=== PATIENT | male | born 1935 | race Caucasian/White ===

== ENCOUNTER 2018-01-18 10:56 | Inpatient (IN) | payer OTHER, MEDICARE ==
[~2018-01-18] VITALS: Ht 182.8 cm; Wt 81.3 kg
--- NOTE | ~2018-01-18 | CON ---
[place], [place] REPORT OF CONSULTATION NAME: MAVIS JONES UNIT #: [id number] ROOM: 424 DOCTOR: SIMONE CASTILLO MD,WENDY BIRTHDATE: [birth year] DOS: 01/19/2018 REASON FOR CONSULTATION: Assess the patient for abnormal CT scan of the chest and for hemoptysis. HISTORY OF PRESENT ILLNESS: This 82-year-old white male presented to the Emergency Room for the assessment of symptoms of intermittent hemoptysis as well as shortness of breath. The patient was sent to the hospital from the [facility] for assessment of the current symptom. The patient stated he has been having hemoptysis, which has been noted for the past 7 days. Hemoptysis has been noted intermittently with fresh bleeding, a small amount of blood clots. He was seen in the Emergency Room for assessment of that. The chest x-ray done for the patient that was noted normal. CT scan of the chest was done afterward. The patient has been advised for hospitalization for further assessment of the ongoing hemoptysis with exacerbation of COPD. He does have symptoms of wheezing. The cough has been otherwise without sputum expectoration prior to that. The wheezing was described previously and intermittently. There were no symptoms of chest pain reported by the patient. The patient denies any symptoms of acute chest pain. Pulse oxygen saturation at the [facility] was also noted 89% as well. REVIEW OF SYSTEMS: CONSTITUTIONAL: The patient has noted weight loss about 40 pounds in the past couple of months. Denies any symptoms of fever or chills. He was also reported symptoms of anorexia. EYES: Denies burning, discharge, or redness. EARS, NOSE, THROAT: Denies any hoarseness, otalgia, postnasal drainage or epistaxis. CARDIOVASCULAR: Denies anginal pain, edema or pain in the lower extremities. GASTROINTESTINAL: Dysphagia, nausea, vomiting, diarrhea, abdominal pain, hematemesis, melena, with recent abnormal weight loss as earlier stated. GENITOURINARY: No dysuria, suprapubic pain, or hematuria. SKIN: Denies any abnormal lesions or rashes. MUSCULOSKELETAL: Denies acute joint pain, redness, or tenderness. CENTRAL NERVOUS SYSTEM: No dizziness, headache, diplopia, or syncopal episodes. Remaining systems were reviewed, they were noted all negative. PAST MEDICAL HISTORY: Noted with history of: 1. COPD. 2. Chronic kidney disease. 3. Type 2 diabetes mellitus. 4. History of gout. 5. Mild senile hearing loss. 6. Past history of herpes zoster. 7. Hyperlipidemia. 8. Essential hypertension. SOCIAL HISTORY: The patient is , has 4 children, lives at home. Denies history of alcohol use or illicit drug use. There has been noted tobacco use for the patient, long-term for this patient, up to 70-pack history of tobacco [place], [place] REPORT OF CONSULTATION NAME: MAVIS JONES UNIT #: [id number] ROOM: [facility] DOCTOR: SIMONE CASTILLO MD,WENDY BIRTHDATE: [birth year] use was known previously. There was no work described in the [employer], [employer] or similar environment. PAST SURGICAL HISTORY: Noted with no major surgeries. FAMILY HISTORY: The patient's father at the age of 8484 years old with complication of broken heart. Mother at the age of 7878 years old with symptoms of congestive heart failure. HOME MEDICATIONS: Noted use of aspirin, finasteride, hydrochlorothiazide, lisinopril, Mucinex, probenecid, and what is described as ubidecarenone. DRUG ALLERGIES: Noted for no known drug allergies. PHYSICAL EXAMINATION: GENERAL: This is an 82-year-old white male who has been noted currently awake and alert, without any acute distress. His height was noted as 6 feet, weight of 179 pounds, BMI 24.3. VITAL SIGNS: For the patient were noted as normal temperature, respiratory rate of 21-22, heart rate of 58-80, blood pressure 170/58-120/52. Intake is 840, output 425 mL. Pulse oxygen saturation on room air at rest was 93% saturation on admission. HEENT: Examination shows head was atraumatic. Eyes nonicterus. Mild senile hearing loss. NECK: Supple. CARDIOVASCULAR: S1, S2 audible. LUNGS: Noted scattered expiratory wheezing bilaterally with decreased breaths in the right lower lung. ABDOMEN: Soft, nontender, mild obesity. Bowel sounds present. EXTREMITIES: Without any edema, clubbing, or cyanosis. CENTRAL NERVOUS SYSTEM: Cranial nerves 2-12 intact. No focal deficit. MUSCULOSKELETAL: Without acute deformities. SKIN: No lesions or rashes. LABORATORY DATA: CBC of the patient that was done yesterday on admission, WBC count 12.1, hemoglobin, hematocrit and platelet count were normal. Lactic acid was noted 1.0, normal. PT and PTT normal yesterday. CMP of the patient from 01/18/2018, BUN of 24, creatinine 1.52. Remaining LFTs as well as troponins normal. The troponin second and third set of the patient yesterday were noted normal. PT and PTT repeated again this morning, normal BMP, BUN 24, creatinine 1.46. CBC this morning, WBC count was noted normal, hemoglobin 12.3, platelet count was normal. IMAGING DATA: Chest x-ray of the patient shows evidence of nodular opacity noted in the right lower lung with prominence of the left hilar area, personally assessed. CT scan of the chest, which was done without contrast, personally assessed as well, shows evidence of a 6 mm nodule in the right middle lobe as well as additional nodules with opacification more than 1 cm, with associated area of infiltration in the left lower lobe with marked narrowing of the left main stem bronchus was also noted. Prominence of the right hilar area was also [place], [place] REPORT OF CONSULTATION NAME: MAVIS JONES UNIT #: [id number] ROOM: 424 DOCTOR: SIMONE CASTILLO MD,[facility] BIRTHDATE: [birth year] noted. The lymphadenopathy present in the left hilar area is difficult to exclude because of lack of use of IV contrast; however, the lymphadenopathy was suspected strongly in the left hilum. IMPRESSION: 1. The patient has been presented to the hospital with intermittent hemoptysis with acute exacerbation of chronic obstructive pulmonary disease, strong suspicion of possible malignancy would be considered in the left lower lung for this patient. 2. History of long-term tobacco user, known previously as well. 3. History of essential hypertension, type 2 diabetes mellitus, and chronic kidney disease was also noted, stage III. 4. A 6 mm nodule in the right middle lobe, which has been noted stable from previous CT scans. PLAN OF MANAGEMENT: The patient has been made n.p.o. past midnight for bronchoscopy. He was receiving intravenous steroids for exacerbation of COPD and that will be continued. Continue antibiotic for any superimposed infection or acute bronchitis as well as left lower lobe pneumonia possibility. Other supportive therapy, plan of management. DVT with GI prophylaxis. Usual care, other plan of management is in progress. Additional treatment changes will be recommended for the patient after the endobronchial tree inspection. The risks and benefits of the procedure have been discussed in detail with the patient personally and with the daughter. The patient gave the consent for the procedure and that will be done today. Continuation of bronchodilators. Thank you for allowing me to participate in the care of this patient. WENDY NICHOLS MD CM:CONSTR:REPORT OF CONSULTATION 1212 01/19/18 1828 interface
--- NOTE | ~2018-01-18 | PROC NOTE ---
[place], [place] PROCEDURE NOTE NAME: MAVIS JONES UNIT #: [id number] ROOM: 424 DOCTOR: SIMONE CASTILLO MD,WENDY BIRTHDATE: [birth year] DOS: 01/19/2018 PREOPERATIVE DIAGNOSES: The patient opted normal CT scan of the chest. POSTOPERATIVE DIAGNOSES: Narrowing of the left main stem bronchus noted up to 80% inability to pass the scope further through after the proximal entry of the left main stem bronchus, endobronchial lesion, submucosal spread strongly suspected for malignant process such as lung cancer. A biopsy was taken in that area. BLOOD LOSS: None. PROCEDURE DESCRIPTION: Informed consent obtained. The patient brought to the OR and placed in supine position. Conscious administered by the Anesthesia Department. After achieving proper sedation, airway introduced into the mouth. Bronchoscope advanced to the airway into laryngeal area. Epiglottis vocal cords were seen. The bronchoscope advanced to the vocal cord. Tracheal lumen was noted without any abnormality. The right upper, right middle, right lower bronchi were all examined and patent with moderate amount of mucus which was cleared out from the right lower lobe endobronchial tree. The left main stem bronchus was entered with extreme nodule up to 80% noted with endobronchial lesion for this patient and the growth for this patient and significant deformity. Slit like opening was noted. The bronchoscope could not be advanced further to that to examine the left upper lingular lower lobe bronchi. Several biopsies were taken in the left endobronchial mass lesion for patient endobronchial lesion. Minimal bleeding was noted. A 5 mL of lidocaine was also lavaged that area prior to the biopsy. The patient to reduce the coughing. A 1:10,000 epinephrine was also lavaged that area to prevent any bleeding. Postoperative finding was discussed with the patient's daughter in detail. The daughter was told that the patient should have a followup for patient to be done by the cyber forensics analyst in the [facility] system. Further discussion and the assessment of the biopsy results will be available. In case that the patient get the authorization to be seen in my office from the [facility] would be more than happy to proceed with the further assessment. The case was also discussed with the patient primary care attending for this patient. The patient could be discharged home today on tapering dose of prednisone. Other appropriate medications today. [place], [place] PROCEDURE NOTE NAME: MAVIS JONES UNIT #: [id number] ROOM: [facility] DOCTOR: SIMONE CASTILLO MD,WENDY BIRTHDATE: [birth year] WENDY NICHOLS MD CM:PROCNOTE:PROCEDURE NOTE 1215 1740 WENDY CASTILLO MD
--- NOTE | ~2018-01-18 | EKG ---
[place], [place] ELECTROCARDIOGRAM REPORT NAME: MAVIS JONES UNIT #: [id number] ROOM: 424 DOCTOR: SIMONE CASTILLO MD,WENDY BIRTHDATE: [birth year] DOS: 01/18/2018 PROCEDURE: Electrocardiogram. PROCEDURE DATE AND TIME: 01/18/2018 at 11:33 a.m. FINDINGS: Normal sinus rhythm was noted with a heart rate of 71 beats per minute with APCs also noted. Nonspecific ST-T changes noted in all of the leads. WENDY NICHOLS MD CM:EKGRPT:ELECTROCARDIOGRAM REPORT 1743 1853 WENDY CASTILLO MD
[~2018-01-18 10:56] MED LIST: ASPIRIN81 M1 PO; BENEMID PO; CO Q-1010 M2 PO; HYDROCODONE BIT1 T11 PO; LISINOPRIL5 MG PO; MUCOUS RELIEF; NAPROSYN500 MG PO; PRINIVIL10 MG PO; RED YEAST RICE600 M1 PO; TERAZOSIN HCL1 M1 PO; VITAMIN D3400 UNIT PO
[2018-01-18 11:04] VITALS: BP 126/50
[2018-01-18 11:38] LABS: BASO # 0.1 10*3/uL (0.0-0.1); BASO % 0.5 % (0.0-1.0); EOS # 0.3 10*3/uL (0.0-0.4); EOS % 2.1 % (1.0-4.0); HEMOGLOBIN 14.4 g/dl (14.0-18.0); LYMPH # 0.9 10*3/uL (1.3-4.4); LYMPH % 7.5 % (27.0-41.0); MEAN CELL VOLUME 98.4 fl (80.0-94.0); MEAN CORPUSCULAR HGB 32.2 pg (27.0-31.0); MEAN CORPUSCULAR HGB CONC 32.7 g/dl (33.0-37.0); MEAN PLATELET VOLUME 10.3 fl (9.6-12.3); MONO # 0.9 10*3/uL (0.1-1.0); MONO % 7.3 % (3.0-9.0); NEUT % 82.4 % (47.0-73.0); PLATELET COUNT AUTOMATED 212 10*3/uL (130-400); RED BLOOD COUNT 4.47 10*6/uL (4.50-5.90); RED CELL DISTRI WIDTH 11.9 % (0-14.5); WHITE BLOOD COUNT 12.1 10*3/uL (4.8-10.8)
[2018-01-18 11:48] LABS: ACT PARTIAL THROMBO TIME 24.8 SECONDS (20.8-31.5); INTERNATIONAL NORM RATIO 0.9 (2.0-3.5)
[2018-01-18 11:54] LABS: ALBUMIN 3.2 gm/dl (3.1-4.5); ALKALINE PHOSPHATASE 87 U/L (45-117); BUN 24 mg/dl (7-24); CHLORIDE 103 mmol/L (98-107); CREATININE 1.52 mg/dL (0.70-1.30); POTASSIUM 4.4 mmol/L (3.5-5.1); SGOT/AST 13 IU/L (3-35); SGPT/ALT 13 U/L (12-78); SODIUM 139 mmol/L (136-145); TOTAL PROTEIN 7.1 gm/dL (6.4-8.2)
[2018-01-18 11:56] LABS: TROPONIN I < 0.015 ng/ml (<0.045)
[2018-01-18 14:00] VITALS: BP 111/60
[2018-01-18 15:00] VITALS: BP 122/48
[2018-01-18] MEDS ORDERED: FINASTERIDE5 M1 PO (15:56)
[2018-01-18] MEDS ORDERED: HYDROCHLOROTH12.5 M3 PO (15:57)
[2018-01-18 16:31] VITALS: BP 120/52
[2018-01-18 17:36] VITALS: BP 117/53
[2018-01-18 20:00] VITALS: BP 104/52
[2018-01-19] VITALS: BP 107/58
[2018-01-19 06:38] LABS: MEAN CELL VOLUME 98.2 fl (80.0-94.0); MEAN CORPUSCULAR HGB 32.5 pg (27.0-31.0); MEAN CORPUSCULAR HGB CONC 33.1 g/dl (33.0-37.0); MEAN PLATELET VOLUME 10.2 fl (9.6-12.3); PLATELET COUNT AUTOMATED 189 10*3/uL (130-400); RED BLOOD COUNT 3.79 10*6/uL (4.50-5.90); RED CELL DISTRI WIDTH 11.6 % (0-14.5); WHITE BLOOD COUNT 6.3 10*3/uL (4.8-10.8)
[2018-01-19 06:59] LABS: HEMATOCRIT 37.2 % (42.0-52.0); HEMOGLOBIN 12.3 g/dl (14.0-18.0)
[2018-01-19 07:06] LABS: CREATININE 1.46 mg/dL (0.70-1.30); POTASSIUM 4.6 mmol/L (3.5-5.1)
[2018-01-19 07:12] LABS: THYROID STIM HORMONE (HS) 0.443 uIU/ml (0.358-4.75)
[2018-01-19 07:56] LABS: PLATELET SUFFICIENCY NORMAL (NORMAL); TOTAL CELLS COUNTED 100 #CELLS
[2018-01-19 08:00] VITALS: BP 110/56
[2018-01-19 08:12] LABS: VITAMIN D, 25-HYDROXY 64.2 ng/mL (30-100)
[2018-01-19 08:59] VITALS: BP 106/62
[2018-01-19 09:42] VITALS: BP 127/53
[2018-01-19 09:57] VITALS: BP 124/58
[2018-01-19 10:12] VITALS: BP 136/54
[2018-01-19] MEDS ORDERED: PREDNISONE10 MG PO (10:49)
[2018-01-19] MEDS ORDERED: LEVAQUIN750 M1 PO (10:49)
[2018-01-19] MEDS ORDERED: DUONEB 3 MG/3 ML3 M1 INH (10:51)
[2018-01-20 16:10] LABS: ACID FAST SPEC PROCESSING Concentration (.)
== END 2018-01-19 11:49 | disposition home or self-care (01) | DRG 871 ==
LOC: ED 10:56 → EDHOLD 14:47 → 4E 14:47 → ICCU 15:22 → 4E 15:58
PROVIDERS: Emergency Medicine; Internal Medicine; Internal Medicine Critical Care Medicine
PROC: 0BC68ZZ Extirpation of Matter from Right Lower Lobe Bronchus, Via Natural or Artificial Opening Endoscopic (ICD-10-PCS; principal; 2018-01-19)
PROC: 0BC48ZZ Extirpation of Matter from Right Upper Lobe Bronchus, Via Natural or Artificial Opening Endoscopic (ICD-10-PCS; 2018-01-19)
PROC: 0BC38ZZ Extirpation of Matter from Right Main Bronchus, Via Natural or Artificial Opening Endoscopic (ICD-10-PCS; 2018-01-19)
PROC: 0BB78ZX Excision of Left Main Bronchus, Via Natural or Artificial Opening Endoscopic, Diagnostic (ICD-10-PCS; 2018-01-19)
DX: A41.9 Sepsis, unspecified organism (principal); J96.01 Acute respiratory failure with hypoxia; N17.0 Acute kidney failure with tubular necrosis; J18.9 Pneumonia, unspecified organism; J44.0 Chronic obstructive pulmonary disease with (acute) lower respiratory infection; E11.22 Type 2 diabetes mellitus with diabetic chronic kidney disease; N18.3 Chronic kidney disease, stage 3 (moderate); J44.1 Chronic obstructive pulmonary disease with (acute) exacerbation; E44.1 Mild protein-calorie malnutrition; J39.8 Other specified diseases of upper respiratory tract; R91.8 Other nonspecific abnormal finding of lung field; J98.09 Other diseases of bronchus, not elsewhere classified; N40.0 Benign prostatic hyperplasia without lower urinary tract symptoms; R65.20 Severe sepsis without septic shock; M10.9 Gout, unspecified; H91.90 Unspecified hearing loss, unspecified ear; E78.5 Hyperlipidemia, unspecified; I12.9 Hypertensive chronic kidney disease with stage 1 through stage 4 chronic kidney disease, or unspecified chronic kidney disease; Z82.49 Family history of ischemic heart disease and other diseases of the circulatory system; Z84.89 Family history of other specified conditions; Z79.899 Other long term (current) drug therapy; Z79.82 Long term (current) use of aspirin; Z72.0 Tobacco use; Z78.9 Other specified health status; Z71.6 Tobacco abuse counseling; Z68.24 Body mass index [BMI] 24.0-24.9, adult